=== PATIENT | male | born 2000 | race Caucasian/White ===

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

== ENCOUNTER 2020-12-17 16:22 | Emergency (ER) | payer OTHER ==
[~2020-12-17] VITALS: Ht 167.6 cm; Wt 56.8 kg
[2020-12-17 16:29] VITALS: BP 113/74; Ht 167.6 cm; Wt 56.8 kg
[2020-12-17] MEDS ORDERED: CEPHALEXIN500 M1 PO (17:07)
== END 2020-12-17 17:14 | disposition home or self-care (01) ==
LOC: D.ER 16:22
DX: L08.9 Local infection of the skin and subcutaneous tissue, unspecified (principal)